=== PATIENT | female | born 1970 | race Caucasian/White ===

== ENCOUNTER → 2018-01-23 07:48 | Outpatient (CLI) | payer OTHER, SELFPAY ==
--- NOTE | 2018-01-23 | DI.MRI.S_ITS ---
PROCEDURE: MR HEAD/BRAIN WO/W CON INDICATIONS: BENIGN INTRACRANIAL HYPERTENSION TECHNIQUE: Noncontrast axial T1 spin echo, axial T2 fast spin echo, sagittal and axial FLAIR, coronal T2 fast spin echo, axial gradient echo, axial diffusion and ADC through the brain. After the administration of contrast, axial and coronal 3D VIBE or T1 spin echo with fat saturation through the brain. COMPARISON: None. FINDINGS: Image quality: Excellent. CSF Spaces: Basal cisterns are patent. No extra-axial fluid collections. Ventricles are normal in size and shape. Brain: No midline shift. No intracranial bleeds or masses. No abnormal intracranial enhancement. The brainstem appears normal. Diffusion-weighted images demonstrate no acute ischemic insults. No chronic ischemic insults. Normal intravascular flow voids are present. Skull and face: Calvarial marrow is normal in signal. Orbits appear normal. Sinuses: Sinuses and mastoids appear clear. IMPRESSION: Normal for age, source of current symptoms is not seen. Dictated by: David Mccollum M.D. on 01/23/2018 at 11:02 Approved by: David Mccollum M.D. on 01/23/2018 at 11:03
== END ==
PROVIDERS: PCP Family Medicine; Visit Provider Family Medicine
DX: G93.2 Benign intracranial hypertension (principal)
CPT/HCPCS: 70553; A9579

== ENCOUNTER → 2018-03-06 06:47 | Outpatient (CLI) | payer OTHER, SELFPAY ==
--- NOTE | 2018-03-06 | DI.MRI.S_ITS ---
PROCEDURE: MR ANGIO HEAD WO CON INDICATIONS: ELEVATED INTRACRANIAL PRESSURE TECHNIQUE: Noncontrast axial 3-D [id number] MR angiogram, with 3-dimensional maximum intensity projection (MIP) reformats of the internal carotid arteries and posterior circulation then performed. Sagittal 3-D [id number] MR venography is also performed. COMPARISON: None. FINDINGS: Image quality: Excellent. Anterior circulation: The left supraclinoid internal carotid artery appears fenestrated. Intracranial internal carotid arteries demonstrate otherwise normal size and intraluminal flow signal. The flow within the paired anterior cerebral arteries is normal and symmetric. The flow within the middle cerebral arteries is normal and symmetric. The anterior communicating artery is seen. No stenoses, occlusions, or aneurysms. Posterior circulation: Visualized portions of the vertebral arteries demonstrate normal caliber, and join to form a normal appearing basilar artery. The flow within the posterior cerebral arteries is normal and symmetric. No stenoses, occlusions, or aneurysms. The sagittal, transverse, and sigmoid sinuses are patent. Internal cerebral veins are patent. IMPRESSION: 1. Fenestrated left supraclinoid internal carotid artery. This has been associated with increased risk of intracranial aneurysm at the site of fenestration. No evidence of intracranial aneurysm. 2. No evidence of cerebral venous stenosis nor thrombosis. Dictated by: Kayla Gomez M.D. on 03/06/2018 at 9:25 Approved by: Kayla Gomez M.D. on 03/06/2018 at 9:31
== END ==
PROVIDERS: PCP Family Medicine; Visit Provider Specialist
DX: G93.2 Benign intracranial hypertension (principal)
CPT/HCPCS: 70544